=== PATIENT | female | born 1945 | race Caucasian/White ===

== ENCOUNTER → 2020-12-28 | Outpatient (CLI) | payer OTHER ==
[~2020-12-28] MED LIST: ALUM-MAG HYDRO360 ML PO; ASPI81CH PO; Allegra-D 12 H1 EACH PO; Antivert25 MG PO; Aspir 8181 MG PO; Ativan1 MG; Bacid1 EACH PO; Benicar Hct 201 EACH PO; CALC1.25T PO; CALCIUM PO; CATAPRES0.2 M1 PO; CYCL10 PO; Catapres0.1 MG PO; DAILY VALUE1 EACH PO; DIAZ2 PO; DIAZ5 PO; FAMO20; FISH1000 PO; GAVILAX17 GM PO; HYDACE5325 PO; HYDR1TAB94 PO; Hair, Skin & N1 EACH PO; LACTOBACILLUS PO; LEVFLO500 PO; LOSHYD100; METO25ER PO; METR500 PO; MOTION RELIEF25 MG; NAPR500 PO; NAUSEA MED PO; Norco 5-325 Ta1 EACH PO; OLME20 PO; OLME20-12.; OMEP20ER; OMEP20ER PO; ONDA4 PO; PROBIOTIC1 EAC1 PO; Prilosec Otc20 MG PO; ZEBUTAL 50-3251 EACH PO; Zofran Odt4 MG SL
== END | disposition home or self-care (01) ==
LOC: LAB SHORT 12:48 → PLD 12:48
DX: R39.15 Urgency of urination (principal)
CPT/HCPCS: 87086

== ENCOUNTER → 2023-03-22 | Outpatient (CLI) | payer OTHER | END | disposition home or self-care (01) | LOC: LAB SHORT 15:32 → LAB 15:32 | DX: N39.0 Urinary tract infection, site not specified (principal) | CPT/HCPCS: 87086 ==

== ENCOUNTER → 2023-03-24 | Outpatient (CLI) | payer OTHER ==
[2023-03-24 17:55] LABS: BASOPHILS ABSOLUTE AUTO 0.08 K/mm3 (0.00-0.23); BASOPHILS PERCENT AUTO 1 % (0-2); EOSINOPHILS ABSOLUTE AUTO 0.11 K/mm3 (0.00-0.68); EOSINOPHILS PERCENT AUTO 1 % (0-6); Hematocrit 45.7 % (33.0-51.0); Hemoglobin 15.2 g/dL (11.5-16.0); IMMATURE GRAN ABSOLUTE AUTO 0.08 K/mm3 (0.00-0.10); IMMATURE GRAN PERCENT AUTO 1 % (0-1); LYMPHOCYTES ABSOLUTE AUTO 2.98 K/mm3 (0.84-5.20); LYMPHOCYTES PERCENT AUTO 24 % (21-46); MONOCYTES ABSOLUTE AUTO 0.97 K/mm3 (0.16-1.47); MONOCYTES PERCENT AUTO 8 % (4-13); Mean Corpuscular HGB 30.3 pg (26.0-34.0); Mean Corpuscular HGB Conc 33.3 g/dL (31.5-36.5); Mean Corpuscular Volume 91 fL (80-100); Mean Platelet Volume 9.8 fL (9.1-12.4); NEUTROPHILS ABSOLUTE AUTO 8.16 K/mm3 (1.96-9.15); NEUTROPHILS PERCENT AUTO 66 % (41-73); Platelet Count 333 K/mm3 (150-400); RDW Coefficient Variation 12.8 % (11.7-14.2); RDW Standard Deviation 42.5 fL (35.1-46.3); Red Blood Cell Count 5.02 M/mm3 (3.80-5.20); White Blood Cell Count 12.38 K/mm3 (4.00-11.30)
[2023-03-24 18:12] LABS: Albumin, Blood 4.2 g/dL (3.4-5.0); Albumin/Globulin Ratio 1.1 (0.8-1.8); Bilirubin, Total 0.4 mg/dL (0.1-1.0); Bun/Creatinine Ratio 20.7 (12.0-20.0); Calcium, Blood 9.7 mg/dL (8.5-10.1); Creatinine, Blood 1.16 mg/dL (0.40-1.00); Globulin, Blood 3.8 g/dL (2.2-4.0); Thyroid Stimulating Hormone 2.319 uIU/mL (0.360-4.800)
== END | disposition home or self-care (01) ==
LOC: LAB 17:50 → LAB SHORT 17:50
PROVIDERS: Physician Assistant Surgical
DX: M62.81 Muscle weakness (generalized) (principal); R53.83 Other fatigue
CPT/HCPCS: 80053; 84443; 85025

== ENCOUNTER 2024-09-18 07:34 | Day surgery (SDC) | payer OTHER ==
[~2024-09-18] VITALS: Ht 175.3 cm; Wt 82.8 kg
[~2024-09-18 07:34] MED LIST changes: +Balanced Salt Epinephrine Irrigation Solution 500 mL IR SCH; +Lidocaine HCl/Pf 1% 5 ML VIAL XX SCH; +Moxifloxacin HCL 0.5 MG/0.1 ML 0.4MLSYR LEFTEYE SCH; +PHENYLEPHRINE\\TROPICAMIDE\\TETRACAINE OPHTHALMIC DILATING SOLN LEFTEYE PRN; +Povidone-Iodine 450 DROP/30 ML Solution LEFTEYE SCH; +Povidone-Iodine 450 DROP/30 ML Solution ONE; +Tetracaine HCl/Pf 0.5% Opth Soln 4 ml ONE
[2024-09-18] MEDS ORDERED: NS 500 ML IV ONE ×2 (07:43→08:28)
[2024-09-18] MEDS ORDERED: AMLODIPINE BESYL5 MG PO (08:05)
--- NOTE | 2024-09-18 08:10 | NUR ---
09/18/24 0810 Jeferson Echevarria CALL LIGHT WITHIN REACH. TETRACAINE IN LEFT EYE AT 0809 PLEDGETT IN AT 0810
[2024-09-18] MEDS ORDERED: FentaNYL Citrate 50 MCG/ML 2 ML Injection ONE (08:40)
[2024-09-18] MEDS ORDERED: Midazolam HCl 1MG / ML 2ML Vial ONE (08:40)
[2024-09-18 09:25] VITALS: BP 150/64
== END 2024-09-18 09:20 | disposition home or self-care (01) ==
LOC: ORSCSDS 07:34
PROVIDERS: Student in an Organized Health Care Education/Training Program
PROC: 08RK3JZ Replacement of Left Lens with Synthetic Substitute, Percutaneous Approach (ICD-10-PCS; principal; 2024-09-18 09:00)
DX: H25.813 Combined forms of age-related cataract, bilateral (principal); I10 Essential (primary) hypertension; K21.9 Gastro-esophageal reflux disease without esophagitis; Z79.899 Other long term (current) drug therapy; Z79.82 Long term (current) use of aspirin; R73.03 Prediabetes
CPT/HCPCS: J2250; J3010; J7040; V2632

== ENCOUNTER 2024-10-02 09:34 | Day surgery (SDC) | payer OTHER ==
[~2024-10-02] VITALS: Ht 175.3 cm; Wt 83.7 kg
[~2024-10-02 09:34] MED LIST changes: +AMLODIPINE BESYL5 MG PO; -Moxifloxacin HCL 0.5 MG/0.1 ML 0.4MLSYR LEFTEYE SCH; +Moxifloxacin HCL 0.5 MG/0.1 ML 0.4MLSYR RIGHTEYE SCH; -PHENYLEPHRINE\\TROPICAMIDE\\TETRACAINE OPHTHALMIC DILATING SOLN LEFTEYE PRN; +PHENYLEPHRINE\\TROPICAMIDE\\TETRACAINE OPHTHALMIC DILATING SOLN RIGHTEYE PRN; -Povidone-Iodine 450 DROP/30 ML Solution LEFTEYE SCH; +Povidone-Iodine 450 DROP/30 ML Solution RIGHTEYE SCH
[2024-10-02] MEDS ORDERED: FentaNYL Citrate 50 MCG/ML 2 ML Injection ONE (09:53)
[2024-10-02] MEDS ORDERED: Midazolam HCl 1MG / ML 2ML Vial ONE (09:53)
[2024-10-02] MEDS ORDERED: Lidocaine HCl/Pf 1% 5 ML VIAL ONE (09:56)
[2024-10-02] MEDS ORDERED: VOLTAREN GEL (10:03)
[2024-10-02] MEDS ORDERED: ALBUTEROL (10:03)
[2024-10-02] MEDS ORDERED: [UNRECOGNIZED DRUG - OTHER] (10:03)
[2024-10-02] MEDS ORDERED: Preservision S1 EACH (10:03)
[2024-10-02] MEDS ORDERED: MULTIVITAMIN (10:04)
[2024-10-02] MEDS ORDERED: CALCIUM (10:04)
[2024-10-02] MEDS ORDERED: VITAMIN D350 MC3 (10:04)
--- NOTE | 2024-10-02 10:08 | NUR ---
10/02/[address] FONTANA NOT NECESSARY TO TEST CHEM BG TODAY
[2024-10-02] MEDS ORDERED: FLONASE ALLERG9.9 ML (10:10)
[2024-10-02 10:43] VITALS: BP 143/76
== END 2024-10-02 10:58 | disposition home or self-care (01) ==
LOC: ORSCSDS 09:34
PROVIDERS: Student in an Organized Health Care Education/Training Program
PROC: 08RJ3JZ Replacement of Right Lens with Synthetic Substitute, Percutaneous Approach (ICD-10-PCS; principal; 2024-10-02 11:00)
DX: H25.811 Combined forms of age-related cataract, right eye (principal); Z96.1 Presence of intraocular lens; I10 Essential (primary) hypertension; H35.89 Other specified retinal disorders; Z79.82 Long term (current) use of aspirin; Z79.899 Other long term (current) drug therapy
CPT/HCPCS: J2003; J2250; J3010; V2632

== ENCOUNTER → 2025-01-13 | Outpatient (CLI) | payer OTHER ==
[~2025-01-13] MED LIST changes: +ALBUTEROL; -Balanced Salt Epinephrine Irrigation Solution 500 mL IR SCH; +CALCIUM; +FLONASE ALLERG9.9 ML; -Lidocaine HCl/Pf 1% 5 ML VIAL XX SCH; +MULTIVITAMIN; -Moxifloxacin HCL 0.5 MG/0.1 ML 0.4MLSYR RIGHTEYE SCH; -PHENYLEPHRINE\\TROPICAMIDE\\TETRACAINE OPHTHALMIC DILATING SOLN RIGHTEYE PRN; -Povidone-Iodine 450 DROP/30 ML Solution ONE; -Povidone-Iodine 450 DROP/30 ML Solution RIGHTEYE SCH; +Preservision S1 EACH; -Tetracaine HCl/Pf 0.5% Opth Soln 4 ml ONE; +VITAMIN D350 MC3; +VOLTAREN GEL; +[UNRECOGNIZED DRUG - OTHER]
== END ==
LOC: LAB SHORT 15:38 → LAB 15:38
DX: R82.998 Other abnormal findings in urine (principal)
CPT/HCPCS: 87086

== ENCOUNTER → 2025-01-25 | Outpatient (CLI) | payer OTHER ==
[2025-01-25 17:51] LABS: BASOPHILS ABSOLUTE AUTO 0.09 K/mm3 (0.00-0.23); BASOPHILS PERCENT AUTO 1 % (0-2); EOSINOPHILS ABSOLUTE AUTO 0.11 K/mm3 (0.00-0.68); EOSINOPHILS PERCENT AUTO 1 % (0-6); Hematocrit 41.8 % (33.0-51.0); Hemoglobin 13.8 g/dL (11.5-16.0); IMMATURE GRAN ABSOLUTE AUTO 0.03 K/mm3 (0.00-0.10); IMMATURE GRAN PERCENT AUTO 0 % (0-1); LYMPHOCYTES ABSOLUTE AUTO 1.87 K/mm3 (0.84-5.20); LYMPHOCYTES PERCENT AUTO 24 % (21-46); MONOCYTES ABSOLUTE AUTO 0.69 K/mm3 (0.16-1.47); MONOCYTES PERCENT AUTO 9 % (4-13); Mean Corpuscular HGB Conc 33.0 g/dL (31.5-36.5); Mean Corpuscular Volume 92 fL (80-100); NEUTROPHILS ABSOLUTE AUTO 5.12 K/mm3 (1.96-9.15); NEUTROPHILS PERCENT AUTO 65 % (41-73); NRBC ABSOLUTE 0.00 K/mm3 (0.00-0.02); NRBC Auto 0.0 /100 WBC (0.0-0.2); Platelet Count 319 K/mm3 (150-400); RDW Coefficient Variation 12.5 % (11.7-14.2); RDW Standard Deviation 42.4 fL (35.1-46.3)
[2025-01-25 18:04] LABS: Alanine Aminotransfer (ALT/SGP 33.0 U/L (12-78); Albumin, Blood 4.1 g/dL (3.4-5.0); Albumin/Globulin Ratio 1.2 (0.8-1.8); Anion Gap 14.0 mmol/L (3-11); Aspartate Aminotrans (AST/SGOT 21.0 U/L (12-37); Bilirubin, Total 0.4 mg/dL (0.1-1.0); Blood Urea Nitrogen 19.0 mg/dL (8-24); CO2, Blood 24.0 mmol/L (21-32); Calcium, Blood 9.4 mg/dL (8.5-10.1); Chloride, Blood 103.0 mmol/L (98-108); Creatinine, Blood 0.99 mg/dL (0.40-1.00); Globulin, Blood 3.4 g/dL (2.2-4.0); Glucose, Blood 106.0 mg/dL (70-99); Potassium, Blood 4.2 mmol/L (3.5-5.5); Sodium, Blood 137.0 mmol/L (136-145); Total Protein, Blood 7.5 g/dL (6.4-8.2)
[2025-01-25 18:31] LABS: Red Blood Cells, Urine 0-2 /hpf (0-2); Source, Urine Clean Catch
== END ==
LOC: LAB SHORT 17:47 → LAB 17:47
PROVIDERS: Emergency Medicine
DX: R10.30 Lower abdominal pain, unspecified (principal); R82.81 Pyuria
CPT/HCPCS: 80053; 81015; 83690; 85025; 87077; 87086; 87186